=== PATIENT | female | born 1960 | race Caucasian/White ===

== ENCOUNTER → 2021-07-08 09:26 | Outpatient (CLI) | payer BC, SELFPAY ==
[2021-07-08 10:53] LABS: Thyroid Stimulating Hormone 2.91 uIU/mL (0.47-4.68)
== END ==
PROVIDERS: Referring Provider Family Medicine Adult Medicine; Visit Provider Family Medicine Adult Medicine
DX: E03.9 Hypothyroidism, unspecified (principal)
CPT/HCPCS: 36415; 84443

== ENCOUNTER → 2021-10-05 07:15 | Outpatient (CLI) | payer OTHER, MEDICAID, SELFPAY ==
[2021-10-05 08:57] LABS: Alanine Aminotransferase 13 IU/L (<35); Albumin 4.6 g/dL (3.5-5.0); Albumin Globulin Ratio 1.6 (1.0-2.8); Alkaline Phosphatase 29 U/L (38-126); Aspartate Aminotransferase 27 IU/L (14-36); BUN Creatinine Ratio 18.6 (6-22); Bilirubin Total 0.7 mg/dL (0.2-1.3); Blood Urea Nitrogen 13 mg/dL (7-17); Calcium 9.3 mg/dL (8.4-10.2); Carbon Dioxide 32 mmol/L (22-32); Chloride 105 mmol/L (98-107); Cholesterol 253 mg/dL (140-199); Estimated Glomerular Filt Rate > 60.0 mL/min (>60); Globulin 2.8 g/dL (1.7-4.1); Glucose 88 mg/dL (80-110); HDL Cholesterol 88 mg/dL (40-60); HEMOLYSIS < 15 (0-50); LDL Cholesterol Calculated 155 mg/dL (<100); Potassium 4.6 mmol/L (3.4-5.1); Sodium 141 mmol/L (137-145); Total Protein 7.4 g/dL (6.3-8.2); Triglycerides 52 mg/dL (35-150)
[2021-10-05 09:12] LABS: Free T4, Direct Thyroxine 1.15 ng/dL (0.78-2.19)
[2021-10-05 09:26] LABS: Thyroid Stimulating Hormone 3.71 uIU/mL (0.47-4.68)
== END ==
PROVIDERS: PCP Internal Medicine; Referring Provider Internal Medicine; Visit Provider Internal Medicine
DX: E03.9 Hypothyroidism, unspecified (principal); Z13.220 Encounter for screening for lipoid disorders
CPT/HCPCS: 36415; 80053; 80061; 84439; 84443

== ENCOUNTER → 2021-12-07 14:20 | Outpatient (CLI) | payer OTHER, MEDICAID, SELFPAY ==
--- NOTE | 2021-12-07 | DI.RAD.S_ITS ---
PROCEDURE: XR LUMBAR SPINE 2-3V INDICATIONS: low back pain TECHNIQUE: 3 views of the lumbar spine were acquired. COMPARISON: None. FINDINGS: Bones: 5 [id number] vertebrae are present. There is normal bony alignment. Loss of disc height and degenerative endplate changes throughout lumbar spine is seen. Bilateral facet arthrosis throughout lumbar spine is also noted. No vertebral body compression fractures. No suspicious bony lesions. Soft tissues: Overlying bowel gas pattern is normal. No suspicious soft tissue calcifications. IMPRESSION: Degenerative disc disease throughout lumbar spine. No acute compression fracture or spondylolisthesis. Dictated by: Dio Peters M.D. on 12/07/2021 at 15:48 Approved by: Dio Peters M.D. on 12/07/2021 at 15:48
== END ==
PROVIDERS: PCP Internal Medicine; Referring Provider Chiropractor; Visit Provider Chiropractor
DX: M51.36 Other intervertebral disc degeneration, lumbar region (principal); M54.50 Low back pain, unspecified
CPT/HCPCS: 72100

== ENCOUNTER 2022-01-03 19:28 | Emergency (ER) | payer OTHER, MEDICAID, SELFPAY ==
[2022-01-03 19:30] VITALS: BP 171/82; PULSE 67; RESP 14; TEMP 36.7; O2SAT 97; BMI 20.5
--- NOTE | 2022-01-03 20:31 | ED.SKABFB ---
HPI - Skin/Abscess/Foreign Bdy General Chief complaint: Skin/Abscess/Foreign Body Stated complaint: infected rt thumb nailbed Time Seen by Provider: 01/03/22 20:02 Source: patient Mode of arrival: Ambulatory Limitations: no limitations History of Present Illness HPI narrative: The patient presents with erythema and swelling at the right thumb nail edge this started about 1 week ago. The erythema and swelling initially occurred on the ulnar side of the nail, has now spread to the tip of the thumb. There is slight tenderness to the nail itself. She has previously had a paronychia that she was able to jose herself. She has not last this light, the site has worsened despite efforts of warm soaks. There are no red streaks spreading proximally from the thumb. She has no fever. She is right-hand dominant. There is no history of injury associated with the paronychia. Related Data Previous Rx's Medication Instructions Recorded levothyroxine 75 mcg tablet 75 mcg PO DAILY #90 tab 11/17/21 amoxicillin 875 mg-potassium 1 tab PO BID #14 tab 01/03/22 clavulanate 125 mg tablet Allergies Allergy/AdvReac Type Severity Reaction Status Date / Time No Known Drug Allergies Allergy Verified 01/03/22 19:34 Review of Systems Review of Systems Narrative: See HPI. Patient History Medical History Abnormal Pap smear of cervix Chlamydia Chronic back pain (~2009) Fibroids GERD (gastroesophageal reflux disease) Hematuria Hypothyroidism Neck pain (~1983) Ovarian cyst (~1989) Plantar warts Surgical History Anesthesia History of breast biopsy (~1977) History of colonoscopy (~2020) History of colonoscopy (~2010) Family History Mother Dementia Father Benign familial tremor Parkinson's disease History of heart disease Hyperlipidemia Grandmother Cancer Grandfather Cancer Grandmother Diabetes mellitus Social History Smoking Status: Former smoker Smoking Status: Former smoker alcohol intake frequency: other Substance Use Type: does not use Exam Initial Vital Signs Initial Vital Signs: Vital Signs Temperature 98.1 F 04/05/22 19:30 Pulse Rate 67 01/03/22 19:30 Respiratory Rate 14 01/03/22 19:30 Blood Pressure 171/82 H 01/03/22 19:30 Pulse Oximetry 97 01/03/22 19:30 Const General: cooperative, healthy appearing and comfortable Skin Other: As noted on the extremity exam. Neuro General: patient alert, patient awake, patient oriented x3 and no focal motor deficits Extrem Other: The right thumb is nontender. There is erythema, induration with fluctuance to the ulnar side of the right thumb nail bed. The induration extends to the tip of thumb and projects from the front edge of the nail. The site has tenderness to touch, capillary refill is intact. Procedures Abscess I/D I&D #1: Time of procedure: 20:25 Site: hand (Right thumb paronychia) Local Anesthetic: lidocaine 1% Amount of anesthesia used (mL): 1 Technique: incised with #11 blade (Incision to the side of the nail, for a paronychia. Incision to the tip of the thumb for a felon.) Amount of fluid expressed (mL): 1 Irrigation: Yes Packing used?: none Course Vital Signs Vital signs: Vital Signs - 8 hr 01/03/22 19:30 Temperature 98.1 F Pulse Rate 67 Respiratory Rate 14 Blood Pressure 171/82 H Pulse Oximetry 97 Discharge Plan Departure Patient Disposition: Home Clinical Impression: Felon of finger of right hand Instructions: DI for Felon Activity Restrictions/Additional Instructions: Soak your right thumb in warm water with Epsom salts 2- 3 times daily until you are convinced the thumb is healing. Augmentin 2 times daily as prescribed. Return here in 48 hours if not improved. Prescriptions: New amoxicillin-pot clavulanate 875-125 mg tablet 1 tab PO BID Qty: 14 0RF No Action levothyroxine 75 mcg tablet 75 mcg PO DAILY Qty: 90 2RF Rx Instructions: MYLAN BRAND PLEASE -- per patient request. Thanks Referrals: Gabriel Stearns MD [Primary Care Provider] -
[2022-01-03] MEDS: TETANUS DIPHTHERIA TOXOIDS 0.5 ML VIAL IM (20:42)
[2022-01-03] MEDS: AMOXICILLIN/CLAV 875/125 MG 1 TAB PO (20:42)
[2022-01-03] MEDS: LIDOCAINE 1% (PF) 2 ML (21:09)
== END 2022-01-03 21:10 | disposition home or self-care (01) ==
PROVIDERS: Emergency Provider Emergency Medicine; PCP Internal Medicine
DX: L03.011 Cellulitis of right finger (principal); Z23 Encounter for immunization
CPT/HCPCS: 10061; 87070; 87075; 87147; 87205; 90471; 90714; 99283

== ENCOUNTER → 2022-05-19 16:11 | Outpatient (CLI) | payer OTHER, MEDICAID, SELFPAY ==
--- NOTE | 2022-05-19 16:13 | DI.MG.S_ITS ---
BILATERAL DIGITAL SCREENING MAMMOGRAM 3D/2D WITH CAD: 05/19/2022 CLINICAL: Routine screening. Comparison is made to exams dated: 10/20/2020 mammogram, 03/28/2018 mammogram, and 03/09/2016 mammogram - outside facility. The tissue of both breasts is heterogeneously dense. This may lower the sensitivity of mammography. Current study was also evaluated with a Computer Aided Detection (CAD) system. No significant masses, calcifications, or other findings are seen in either breast. There has been no significant interval change. IMPRESSION: NEGATIVE There is no mammographic evidence of malignancy. A 1 year screening mammogram is recommended. Based on the Tyrer Cuzick model (a risk assessment model) the patient's lifetime risk is 11.1% and her 10 year risk is 4.8%. According to the ACR, ACS, and NCCN guidelines, an annual breast MRI exam along with mammogram is recommended if the patient's lifetime risk is 20% or greater. This exam was interpreted at Station ID: [id number]. NOTE: For mammograms, a report in lay terms will be sent to the patient. Approximately 15% of breast malignancies will not be visualized mammographically. In the management of a palpable breast mass, a negative mammogram must not discourage biopsy of a clinically suspicious lesion. Electronically Signed By: Warren zaidi/nik:05/22/2022 08:21:51 letter sent: Normal Exam ACR BI-RADS Category 1: Negative 3341F
== END ==
PROVIDERS: PCP Internal Medicine; Referring Provider Registered Nurse Diabetes Educator; Visit Provider Registered Nurse Diabetes Educator
DX: Z12.31 Encounter for screening mammogram for malignant neoplasm of breast (principal)
CPT/HCPCS: 77063; 77067

== ENCOUNTER → 2022-06-15 14:23 | Outpatient (CLI) | payer OTHER, MEDICAID, SELFPAY | PROVIDERS: PCP Internal Medicine; Visit Provider Physician Assistant Medical | DX: R31.9 Hematuria, unspecified (principal); R35.0 Frequency of micturition | CPT/HCPCS: 81002; 87086 ==

== ENCOUNTER → 2022-08-01 07:13 | Outpatient (CLI) | payer OTHER, MEDICAID, SELFPAY ==
[2022-08-01 11:23] LABS: BUN Creatinine Ratio 21.9 (6-22); Blood Urea Nitrogen 14 mg/dL (7-17); Calcium 9.2 mg/dL (8.4-10.2); Carbon Dioxide 28 mmol/L (22-32); Chloride 98 mmol/L (98-107); Estimated Glomerular Filt Rate > 60 mL/min (>60); Glucose 77 mg/dL (80-110); HEMOLYSIS < 15 (0-50); Sodium 137 mmol/L (137-145)
== END ==
PROVIDERS: PCP Internal Medicine; Referring Provider Internal Medicine; Visit Provider Internal Medicine
DX: Z01.818 Encounter for other preprocedural examination (principal)
CPT/HCPCS: 36415; 80048

== ENCOUNTER → 2022-08-02 08:11 | Outpatient (CLI) | payer OTHER, MEDICAID, SELFPAY ==
--- NOTE | 2022-08-02 08:20 | DI.CT.S_ITS ---
PROCEDURE: CT IVP A/P W/WO INDICATIONS: Other microscopic hematuria TECHNIQUE: 5 mm thick noncontrast images acquired from the diaphragm to the symphysis pubis. After the administration of intravenous contrast, 5 mm thick images acquired from the diaphragm to the symphysis pubis after a 10-minute delay using a split bolus technique. 2 mm thick coronal and sagittal reformats were then performed of the kidneys and ureters. For radiation dose reduction, the following was used: automated exposure control, adjustment of mA and/or kV according to patient size. COMPARISON: None. FINDINGS: Image quality: Excellent. Lung bases: No pleural effusion. Small pericardial effusion. Urinary system: No urinary stone or hydronephrosis visualized. Right upper kidney calyceal diverticulum, approximately 1.8 cm. No definite evidence of a solid renal mass. The opacified portions of the renal collecting systems and ureters are unremarkable without a definite filling defect demonstrated. Right proximal ureter and left mid ureter not well opacified and not well evaluated. No bladder stones visualized. Other solid organs: Liver is unremarkable in size and enhancement. Gallbladder is unremarkable . Biliary system is non dilated. Pancreas enhances normally. Spleen is normal in size. Subcentimeter hypodensity upper medial spleen is nonspecific, too small to characterize, could represent a cyst or hemangioma. No adrenal nodules. Peritoneum and bowel: No bowel obstruction. No free fluid or air. Possible small bilateral Bochdalek hernias. 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 vessels: Aorta and inferior vena cava are normal in size. Abdominal wall: Small fat containing periumbilical hernia. Pelvis: No pathologic free pelvic fluid. No adenopathy. Bones: Multilevel degenerative change of the visualized spine and hips. IMPRESSION: 1. No urinary stone or evidence of a solid renal mass or upper tract urothelial neoplasm. 2. Right upper kidney calyceal diverticulum. 3. Small pericardial effusion. Dictated by: Warren Bear M.D. on 08/02/2022 at 9:21 Approved by: Warren Bear M.D. on 08/02/2022 at 9:46
== END ==
PROVIDERS: PCP Internal Medicine; Referring Provider Specialist; Visit Provider Specialist
DX: R31.29 Other microscopic hematuria (principal); N28.89 Other specified disorders of kidney and ureter; I31.39 Other pericardial effusion (noninflammatory)
CPT/HCPCS: 74178; Q9967

== ENCOUNTER → 2022-11-30 15:42 | Outpatient (CLI) | payer OTHER, MEDICAID, SELFPAY ==
[2022-11-30 16:17] LABS: Hematocrit 36.2 % (36-46); Hemoglobin 12.4 g/dL (12.0-16.0)
[2022-11-30 16:40] LABS: Blood Urea Nitrogen 18 mg/dL (7-17); Calcium 9.1 mg/dL (8.4-10.2); Carbon Dioxide 28 mmol/L (22-32); Chloride 100 mmol/L (98-107); Estimated Glomerular Filt Rate > 60 mL/min (>60); Glucose 80 mg/dL (80-110); HEMOLYSIS < 15 (0-50); Potassium 3.8 mmol/L (3.4-5.1); Sodium 135 mmol/L (137-145)
[2022-11-30 17:12] LABS: Creatinine Urine Random 245.7 mg/dL
[2022-11-30 17:13] LABS: Protein (Total) Urine Random < 5 mg/dL (0-12); Protein Creatinine Ratio Urine 0.02 GRAM/24H
== END ==
PROVIDERS: Family Provider Internal Medicine; PCP Internal Medicine; Referring Provider Student in an Organized Health Care Education/Training Program; Visit Provider Student in an Organized Health Care Education/Training Program
DX: N05.9 Unspecified nephritic syndrome with unspecified morphologic changes (principal); D64.9 Anemia, unspecified; R80.9 Proteinuria, unspecified
CPT/HCPCS: 36415; 80048; 82570; 84156; 85014; 85018

== ENCOUNTER → 2022-12-16 07:58 | Outpatient (CLI) | payer OTHER, MEDICAID, SELFPAY ==
[2022-12-16 09:13] LABS: Alanine Aminotransferase 14 IU/L (<35); Albumin 4.5 g/dL (3.5-5.0); Albumin Globulin Ratio 1.6 (1.0-2.8); Alkaline Phosphatase 39 U/L (38-126); Aspartate Aminotransferase 27 IU/L (14-36); BUN Creatinine Ratio 19.7 (6-22); Bilirubin Total 1.1 mg/dL (0.2-1.3); Blood Urea Nitrogen 14 mg/dL (7-17); Carbon Dioxide 30 mmol/L (22-32); Chloride 101 mmol/L (98-107); Cholesterol 256 mg/dL (140-199); Estimated Glomerular Filt Rate > 60 mL/min (>60); Globulin 2.8 g/dL (1.7-4.1); Glucose 85 mg/dL (80-110); HDL Cholesterol 96 mg/dL (40-60); HEMOLYSIS < 15 (0-50); LDL Cholesterol Calculated 146 mg/dL (<100); Potassium 3.9 mmol/L (3.4-5.1); Sodium 138 mmol/L (137-145); Total Protein 7.3 g/dL (6.3-8.2); Triglycerides 71 mg/dL (35-150)
[2022-12-16 09:34] LABS: Free T4, Direct Thyroxine 1.18 ng/dL (0.78-2.19)
[2022-12-16 09:47] LABS: Thyroid Stimulating Hormone 5.39 uIU/mL (0.47-4.68)
== END ==
PROVIDERS: Family Provider Internal Medicine; PCP Internal Medicine; Referring Provider Internal Medicine; Visit Provider Internal Medicine
DX: Z13.6 Encounter for screening for cardiovascular disorders (principal); E03.9 Hypothyroidism, unspecified; R31.29 Other microscopic hematuria
CPT/HCPCS: 36415; 80053; 80061; 84439; 84443

== ENCOUNTER → 2022-12-19 07:32 | Outpatient (CLI) | payer OTHER, MEDICAID, SELFPAY | PROVIDERS: Family Provider Internal Medicine; PCP Internal Medicine; Visit Provider Physician Assistant | DX: J02.9 Acute pharyngitis, unspecified (principal) | CPT/HCPCS: 87070; 87880 ==

== ENCOUNTER → 2022-12-29 10:59 | Outpatient (CLI) | payer OTHER, MEDICAID, SELFPAY ==
[2022-12-29 11:32] LABS: Appearance Urine UA CLEAR; Bilirubin Urine UA NEGATIVE (NEGATIVE); Color Urine UA YELLOW; Glucose Urine UA NEGATIVE (Negative); Ketones Urine UA NEGATIVE (NEGATIVE); Leukocyte Esterase Urine UA NEGATIVE (NEGATIVE); Nitrite Urine UA NEGATIVE (Negative); Occult Blood Urine UA 1+ (Negative); Protein Urine UA NEGATIVE (Negative); Specific Gravity Urine UA <=1.005 (1.000-1.035); Urobilinogen Urine UA 0.2 E.U./dL (0.2)
[2022-12-29 11:56] LABS: pH Urine UA 6.5 (4.5-8.0)
[2022-12-29 12:30] LABS: Bacteria Urine None Seen; Culture Indicated Urine Cult Not Indicated; RBC Urine 0-1/HPF (0-5/HPF); Squamous Epithelial Cell Urine None Seen (0-5/HPF); WBC Urine None Seen (0-5/HPF)
[2022-12-29 13:41] LABS: Hep C Virus Ab w/Reflex Quant NEGATIVE s/c (NEGATIVE); Hepatitis B Surface Antigen NEGATIVE s/c (NEGATIVE)
[2022-12-30 08:44] LABS: Hepatitis B Surf Ab Qualitativ Non Reactive (.)
[2022-12-30 19:06] LABS: DNA (DS) Antibody <1 IU/mL (0-9)
[2022-12-31 07:18] LABS: Complement C3 97 mg/dL (82-167); Hepatitis B Core Antibody Negative (Negative)
[2023-01-02 12:36] LABS: Cytoplasmic C-ANCA <1:20 titer (Neg:<1:20); Perinuclear P-ANCA <1:20 titer (Neg:<1:20)
[2023-01-02 18:07] LABS: ANA Screen, IFA Negative (.)
== END ==
PROVIDERS: Family Provider Internal Medicine; PCP Internal Medicine; Referring Provider Student in an Organized Health Care Education/Training Program; Visit Provider Student in an Organized Health Care Education/Training Program
DX: L93.2 Other local lupus erythematosus (principal); M31.30 Wegener's granulomatosis without renal involvement; N00.9 Acute nephritic syndrome with unspecified morphologic changes; D89.89 Other specified disorders involving the immune mechanism, not elsewhere classified; B19.10 Unspecified viral hepatitis B without hepatic coma; B17.10 Acute hepatitis C without hepatic coma; N30.00 Acute cystitis without hematuria
CPT/HCPCS: 36415; 81001; 83516; 86038; 86160; 86225; 86256; 86704; 86706; 86803; 87340

== ENCOUNTER → 2023-01-02 17:02 | Outpatient (CLI) | payer OTHER, MEDICAID, SELFPAY ==
--- NOTE | 2023-01-02 | DI.MRI.S_ITS ---
PROCEDURE: MR LUMBAR SPINE WO CON INDICATIONS: STRAIN OF MUSCLE, LOWER BACK TECHNIQUE: Noncontrast sagittal T1 spin echo and T2 fast echo, sagittal STIR, and T2 fast spin echo through the lumbar spine. In cases with scoliosis, additional coronal T2 fast spin echo may be performed. COMPARISON: [facility], CR, XR LUMBAR SPINE WITH FLEXION EXTENSION 5 VIEWS, 11/17/2022, 12:01. FINDINGS: Image quality: Excellent. Alignment and Curvature: There is normal bony alignment. Bone Marrow: Marrow is of normal overall signal. No acute vertebral body compression fractures. Spinal Cord: Conus medullaris terminates at the L1-L2 level. Visualized cord demonstrates normal signal and size. Paraspinous Soft Tissues: No paravertebral masses. T12-L1: Minimal disc bulge. No canal stenosis or foraminal stenosis. L1-L2: No canal stenosis or foraminal stenosis. L2-L3: Severe disc height loss. Mild posterior disc post osteophyte. Mild facet hypertrophy. No significant canal stenosis or foraminal stenosis. L3-L4: Moderate disc height loss. Disc bulge. Facet hypertrophy. Mild canal stenosis. No significant right foraminal narrowing. Left foraminal disc bulge indenting on the inferior aspect of the left L3 nerve root with [id number] foraminal stenosis. L4-L5: Disc bulge. Moderate disc height loss. Facet hypertrophy. Konp-qd-qsozqjnl canal stenosis. Crdn-zp-pfjloiru right foraminal narrowing with mild flattening deformity on the exiting right L4 nerve root. Mild left foraminal narrowing. L5-S1: Bilateral facet hypertrophy. Disc bulge. No canal stenosis or foraminal stenosis. IMPRESSION: 1. Mild multilevel facet arthropathy. 2. Canal stenosis is mild at L3-L4 and iwjm-wb-[id number] at L4-L5. 3. Multilevel foraminal narrowing as described above. Dictated by: Owen Garcia M.D. on 01/03/2023 at 8:13 Approved by: Owen Garcia M.D. on 01/03/2023 at 8:20
== END ==
PROVIDERS: Family Provider Internal Medicine; PCP Internal Medicine; Referring Provider Physician Assistant Surgical; Visit Provider Physician Assistant Surgical
DX: S39.012A Strain of muscle, fascia and tendon of lower back, initial encounter (principal); M47.816 Spondylosis without myelopathy or radiculopathy, lumbar region; M47.817 Spondylosis without myelopathy or radiculopathy, lumbosacral region; M48.061 Spinal stenosis, lumbar region without neurogenic claudication
CPT/HCPCS: 72148

== ENCOUNTER 2023-01-23 15:15 | Outpatient (RCR) | payer OTHER, MEDICAID, SELFPAY ==
--- NOTE | 2023-01-10 09:51 | PT.OIE ---
Current Diagnoses Segmental and somatic dysfunction of pelvic region (01/09/23) Unspecified urinary incontinence (01/09/23) Nocturia (01/09/23) Past Medical History (Last Updated 12/19/22 @ 14:48 by Gabriel Stearns MD) Abnormal Pap smear of cervix Chlamydia Chronic back pain (~2009) Fibroids GERD (gastroesophageal reflux disease) Hematuria History of abnormal cervical Pap smear Hypothyroidism Neck pain (~1983) Ovarian cyst (~1989) Plantar warts Thyroid disease Past Surgical History (Last Reviewed 08/23/22 @ 08:45 by Argentina Jacques MD) Anesthesia History of breast biopsy (~1977) History of colonoscopy (~2020) History of colonoscopy (~2010) Visit Care Team Role Provider Type Gabriel Stearns MD Family Provider Physician Primary Care Provider Specialty: Internal Medicine Address: [address] [place] [address], [id number] Email: [email or web address] Meg Souza PA-C Attending Provider Advanced Acid Purifier Referring Provider Specialty: Medical Address: [address] [place] [address], [facility] Phone: Fax: Email: Physical Therapy Initial Evaluation PT-OP-A Visit Information Start: 01/09/23 09:29 Freq: Status: Active Protocol: Document 01/09/23 14:35 [facility] (Rec: 01/09/23 15:30 [facility] [id number]) Out-Patient Physical Therapy Visit Information Visit Information Visit Type Initial Evaluation Visit Note 62 year old female with urinary urge and stress incontinence Visit Start Time 14:35 Visit Stop Time 15:15 Total Visit Minutes 40 Visit Number 1 Evaluation Information Evaluation Date 01/09/23 PT-OP-B Current Condition Start: 01/09/23 09:29 Freq: Status: Active Protocol: Document 01/09/23 14:35 [facility] (Rec: 01/09/23 15:30 [facility] [id number]) Current Condition History of Current Condition Onset Date chronic Current Complaints urinary urgency, urge incontinence, stress incontinence History of Current Condition pt has been single for years and notes vaginal atrophy, she started using estrodial for microscopic hematuria. She did have her bladder CT scans which was normal and she had consult with the kidney doctor . She reports symptoms of urgnecy as well as urinary stress incontinence. She is not wearing pads usually but only occasionally if she will wear a pad if she is going be out of the house. Pt also reports nocturia. Treatment Goals Patient/Caregiver Goals pts goals include reducing urinary urgency and stress incontinence PT-OP-F Manual Assessment Start: 01/09/23 09:29 Freq: Status: Active Protocol: Document 01/09/23 14:35 [facility] (Rec: 01/09/23 17:30 [facility] [id number]) Manual Assessments Soft Tissue Assessment Soft Tissue Mobility Assessment hypertonic left lateral wall of the pelvic floor, left adductors guarded and tight, piriformis guarded and tight on the left PT-OP-I Pelvic Floor Start: 01/09/23 09:29 Freq: Status: Active Protocol: Document 01/09/23 14:35 [facility] (Rec: 01/09/23 17:27 [facility] [id number]) Pelvic Floor Assessment Urine Pelvic Floor Surgery No Urinary Symptoms Urge Sensation Leakage Size Small Leakage Cause Exercise,Urge Other Leakage Causes changing from sit-stand Leaks Per Day varies Voiding Frequency 6 Nocturia 1-3 times Pelvic Clock Pelvic Clock 3-6 Guarding,Hypertonic Pelvic Clock 6-9 Guarding Pelvic Clock Other pt has difficulty relaxing her pelvic floor and is hypertonic on the left lateral wall, she is guarded on the right side but is better able to relax on the right Contraction Ability Voluntary Contraction Moderate Manual Muscle Testing Left 4 Manual Muscle Testing Right 4 Manual Muscle Testing Anterior 4 Manual Muscle Testing Posterior 4 Muscle Endurance (Seconds) 4 Comments Pelvic Floor Comments pt lacks endurance of the pelvic floor and is only able to sustain a pelvic floor contraction x 4 seconds in supine PT-OP-J Posture/Palpation/Skin Start: 01/09/23 09:29 Freq: Status: Active Protocol: Document 01/09/23 14:35 [facility] (Rec: 01/09/23 17:28 [facility] [id number]) Palpation Assessment Location levator ani Palpation Findings Soft Tissue Tightness,Muscle Guarding Palpation Details left side of the levator ani is hypertonic and guarded, right side is guarded PT-OP-Q Treatments Start: 01/09/23 09:29 Freq: Status: Active Protocol: Document 01/09/23 14:35 [facility] (Rec: 01/09/23 17:20 [facility] [id number]) Therapeutic Exercises Supine Exercises pelvic floor long holds Reps/Minutes x 10 reps holding 5 seconds and relaxing x 10 seconds or longer modified pelvic floor squat stretch Reps/Minutes hold 1-2 minutes happy baby stretch Reps/Minutes hold 1-2 min PT-OP-T Assessment and Plan Start: 01/09/23 09:29 Freq: Status: Active Protocol: Document 01/09/23 14:35 [facility] (Rec: 01/09/23 17:35 [facility] [id number]) Physical Therapy Assessment Rehab Potential Rehabilitation Potential Excellent Evaluation Complexity Number of Personal Factors/Comorbidities 0 Number of Body Systems Impaired 1-2 Clinical Presentation at Evaluation Stable Impairments Impairments Activity Tolerance,Soft Tissue Mobility,Strength,Tone Other Impairments urinary urgency, nocturia, urge and stress incontinence Goals 3 Impairment urinary stress and urge incontinence Containers Sales Representative Goal (LTG) pt reports overall reduction with urge and stress incontinence and is able to engage in her social activities without experiencing urinary leakage LTG Duration 8 weeks+ 2 Impairment urinary urgency and nocturia Short Term Goal (STG) pt is educated on bladder retraining and urge deference technique to help decrease c/o urinary urgency STG Duration 4 weeks Containers Sales Representative Goal (LTG) pt is able to delay the need to void to every 2 hours during the day and is waking only 1 time at night to void LTG Duration 8 weeks 1 Impairment hypertonicity of the left lateral wall of the levator ani and decreased ability to relax the pelvic floor at rest making it difficult to fully empty the bladder Short Term Goal (STG) pt is educated on relaxed awareness of the pelvic floor and importance of pelvic floor and abdominal relaxation with voiding STG Duration 3 weeks Penitentiary Goal (LTG) With manual therapy techniques , exercises and stretches Chrisite is able to fully relax the pelvic floor to baseline. LTG Duration 8 weeks + Assessment Summary Assessment Silvia is a 62 year old female who presents to PT today with c/o urinary urgency , urge and stress incontinence . She reports she has a history of left sided hip pain from OA and has been doing PT for her hip. Recent MRI shows multi level facet arthropathy, multi level foraminal narrowing, mild canal stenosis at L3-4 and mild -moderate at L4-5. She has been using estrogen cream which she started recently and she feels this has been helping. With pelvic floor examination today Silvia presents with hypertonic pelvic floor on the left lateral wall of the levator ani. She is guarded on the right side but with cueing she is able to relax her right lateral wall of the levator ani. She lacks endurance holds greater than 4 seconds and becomes fatigued quickly with contractions. Treatment will address the hypertonicity of the levator ani on the left and educate on relaxed awareness of the pelvic floor for complete bladder emptying. Pt will be instructed in bladder retraining and urge deference technique as well as Pelvic floor endurance training with EMG biofeedback. She is a good candidate for PT. Physical Therapy Plan Frequency and Duration Frequency of Treatment 1x/Week Duration of treatment (weeks) 8 Plan of Care Start Date 01/09/23 Plan of Care End Date 03/06/23 Therapeutic Interventions Therapeutic Interventions Manual Therapy,Neuromuscular Re-education,Patient/Caregiver Education,Self-Care/Home Management,Soft Tissue Mobilization,Therapeutic Exercises Modalities Biofeedback Next Visit Focus/Plan Next Note Type Treatment Note Next Visit Plan Begin EMG biofeedback next visit and educate Silvia on bladder retraining and urge deference technique.
--- NOTE | 2023-01-10 09:52 | PT.OPPOC ---
Physical, Occupational & Speech Therapy At [facility] Current Diagnoses Segmental and somatic dysfunction of pelvic region (01/09/23) Unspecified urinary incontinence (01/09/23) Nocturia (01/09/23) Visit Care Team Role Provider Type Gabriel Stearns MD Family Provider Physician Primary Care Provider Specialty: Internal Medicine Address: [address] [place] [address], [address] Email: [email or web address] Meg Souza PA-C Attending Provider Advanced Window/Distribution Clerk Referring Provider Specialty: Medical Address: [address] [place] [address], [place] [address], [place], [address] Phone: Fax: Email: Plan Of Care PT-OP-T Assessment and Plan Start: 01/09/23 09:29 Freq: Status: Active Protocol: Document 01/09/23 14:35 [facility] (Rec: 01/09/23 17:35 [facility] [id number]) Physical Therapy Assessment Rehab Potential Rehabilitation Potential Excellent Evaluation Complexity Number of Personal Factors/Comorbidities 0 Number of Body Systems Impaired 1-2 Clinical Presentation at Evaluation Stable Impairments Impairments Activity Tolerance,Soft Tissue Mobility,Strength,Tone Other Impairments urinary urgency, nocturia, urge and stress incontinence Goals 3 Impairment urinary stress and urge incontinence Appliance Assembler Goal (LTG) pt reports overall reduction with urge and stress incontinence and is able to engage in her social activities without experiencing urinary leakage LTG Duration 8 weeks+ 2 Impairment urinary urgency and nocturia Short Term Goal (STG) pt is educated on bladder retraining and urge deference technique to help decrease c/o urinary urgency STG Duration 4 weeks Halfway Goal (LTG) pt is able to delay the need to void to every 2 hours during the day and is waking only 1 time at night to void LTG Duration 8 weeks 1 Impairment hypertonicity of the left lateral wall of the levator ani and decreased ability to relax the pelvic floor at rest making it difficult to fully empty the bladder Short Term Goal (STG) pt is educated on relaxed awareness of the pelvic floor and importance of pelvic floor and abdominal relaxation with voiding STG Duration 3 weeks Appliance Assembler Goal (LTG) With manual therapy techniques , exercises and stretches Chrisite is able to fully relax the pelvic floor to baseline. LTG Duration 8 weeks + Assessment Summary Assessment Silvia is a 62 year old female who presents to PT today with c/o urinary urgency , urge and stress incontinence . She reports she has a history of left sided hip pain from OA and has been doing PT for her hip. Recent MRI shows multi level facet arthropathy, multi level foraminal narrowing, mild canal stenosis at L3-4 and mild -moderate at L4-5. She has been using estrogen cream which she started recently and she feels this has been helping. With pelvic floor examination today Silvia presents with hypertonic pelvic floor on the left lateral wall of the levator ani. She is guarded on the right side but with cueing she is able to relax her right lateral wall of the levator ani. She lacks endurance holds greater than 4 seconds and becomes fatigued quickly with contractions. Treatment will address the hypertonicity of the levator ani on the left and educate on relaxed awareness of the pelvic floor for complete bladder emptying. Pt will be instructed in bladder retraining and urge deference technique as well as Pelvic floor endurance training with EMG biofeedback. She is a good candidate for PT. Physical Therapy Plan Frequency and Duration Frequency of Treatment 1x/Week Duration of treatment (weeks) 8 Plan of Care Start Date 01/09/23 Plan of Care End Date 03/06/23 Therapeutic Interventions Therapeutic Interventions Manual Therapy,Neuromuscular Re-education,Patient/Caregiver Education,Self-Care/Home Management,Soft Tissue Mobilization,Therapeutic Exercises Modalities Biofeedback Next Visit Focus/Plan Next Note Type Treatment Note Next Visit Plan Begin EMG biofeedback next visit and educate Silvia on bladder retraining and urge deference technique. Plan of Care Dates Plan of Care Start Date 01/09/23 Plan of Care End Date 03/06/23 Electronically Signed by: Jazmyne Brown, PT 01/10/23 0952 If you are in agreement with this Plan of Care, please return a signed and dated copy. I have reviewed this Plan of Care and certify that the skilled therapy services above are required to meet the patient?s needs. Physician Signature Date Printed Name and Credentials Clinical Instructor Signature Printed Name and Credentials
--- NOTE | 2023-01-18 17:11 | PT.OTN ---
Current Diagnoses Segmental and somatic dysfunction of pelvic region (01/18/23) Unspecified urinary incontinence (01/18/23) Nocturia (01/18/23) Physical Therapy Treatment Note PT-OP-A Visit Information Start: 01/09/23 09:29 Freq: Status: Active Protocol: Document 01/18/23 16:06 [facility] (Rec: 01/18/23 17:10 [facility] [id number]) Out-Patient Physical Therapy Visit Information Visit Information Visit Type Treatment Note Visit Start Time 14:05 Visit Stop Time 14:50 Total Visit Minutes 45 Visit Number 2 PT-OP-B Current Condition Start: 01/09/23 09:29 Freq: Status: Active Protocol: Document 01/09/23 14:35 [facility] (Rec: 01/09/23 15:30 [facility] [id number]) Current Condition History of Current Condition Onset Date chronic Current Complaints urinary urgency, urge incontinence, stress incontinence History of Current Condition pt has been single for years and notes vaginal atrophy, she started using estrodial for microscopic hematuria. She did have her bladder CT scans which was normal and she had consult with the kidney doctor . She reports symptoms of urgnecy as well as urinary stress incontinence. She is not wearing pads usually but only occasionally if she will wear a pad if she is going be out of the house. Pt also reports nocturia. Treatment Goals Patient/Caregiver Goals pts goals include reducing urinary urgency and stress incontinence PT-OP-C Subjective Start: 01/09/23 09:29 Freq: Status: Active Protocol: Document 01/18/23 16:06 [facility] (Rec: 01/18/23 17:10 [facility] [id number]) OP-PT Subjective Patient Comments Patient Comments pt has been working on her exercises, pt has been holding x 8 seconds PT-OP-F Manual Assessment Start: 01/09/23 09:29 Freq: Status: Active Protocol: Document 01/09/23 14:35 [facility] (Rec: 01/09/23 17:30 [facility] [id number]) Manual Assessments Soft Tissue Assessment Soft Tissue Mobility Assessment hypertonic left lateral wall of the pelvic floor, left adductors guarded and tight, piriformis guarded and tight on the left PT-OP-I Pelvic Floor Start: 01/09/23 09:29 Freq: Status: Active Protocol: Document 01/09/23 14:35 [facility] (Rec: 01/09/23 17:27 [facility] [id number]) Pelvic Floor Assessment Urine Pelvic Floor Surgery No Urinary Symptoms Urge Sensation Leakage Size Small Leakage Cause Exercise,Urge Other Leakage Causes changing from sit-stand Leaks Per Day varies Voiding Frequency 6 Nocturia 1-3 times Pelvic Clock Pelvic Clock 3-6 Guarding,Hypertonic Pelvic Clock 6-9 Guarding Pelvic Clock Other pt has difficulty relaxing her pelvic floor and is hypertonic on the left lateral wall, she is guarded on the right side but is better able to relax on the right Contraction Ability Voluntary Contraction Moderate Manual Muscle Testing Left 4 Manual Muscle Testing Right 4 Manual Muscle Testing Anterior 4 Manual Muscle Testing Posterior 4 Muscle Endurance (Seconds) 4 Comments Pelvic Floor Comments pt lacks endurance of the pelvic floor and is only able to sustain a pelvic floor contraction x 4 seconds in supine PT-OP-J Posture/Palpation/Skin Start: 01/09/23 09:29 Freq: Status: Active Protocol: Document 01/09/23 14:35 [facility] (Rec: 01/09/23 17:28 [facility] [id number]) Palpation Assessment Location levator ani Palpation Findings Soft Tissue Tightness,Muscle Guarding Palpation Details left side of the levator ani is hypertonic and guarded, right side is guarded PT-OP-Q Treatments Start: 01/09/23 09:29 Freq: Status: Active Protocol: Document 01/18/23 16:06 [facility] (Rec: 01/18/23 17:10 [facility] [id number]) Therapeutic Exercises Supine Exercises diaphragmatic breathing Reps/Minutes x 4 min pelvic floor resting tone Reps/Minutes 2.5 uv pelvic floor long holds Reps/Minutes holding 10 seconds on 10 seconds for HEP 10 sec on 20sec off Comments 24.5 max of 43.1 modified pelvic floor squat stretch Reps/Minutes hold 1-2 minutes happy baby stretch Reps/Minutes hold 1-2 min Other Exercises armin pose Reps/Minutes hold 1-2 min Neuro Re-Education Treatment Other Activities EMG biofeedback Comments relaxed awareness of the pelvic floor, education on breathing with pelvic floor relaxation Self-Care/Home Management Treatment Education Patient Education Home Exercise Program Other Education pt was educated in urge deference technique and bladder retraining , HEP instruction PT-OP-T Assessment and Plan Start: 01/09/23 09:29 Freq: Status: Active Protocol: Document 01/18/23 16:06 [facility] (Rec: 01/18/23 17:10 [facility] [id number]) Physical Therapy Assessment Goals 3 Impairment urinary stress and urge incontinence Long-Term Goal (LTG) pt reports overall reduction with urge and stress incontinence and is able to engage in her social activities without experiencing urinary leakage LTG Duration 8 weeks+ 2 Impairment urinary urgency and nocturia Short Term Goal (STG) pt is educated on bladder retraining and urge deference technique to help decrease c/o urinary urgency STG Duration 4 weeks Fishing Gear Mechanic Goal (LTG) pt is able to delay the need to void to every 2 hours during the day and is waking only 1 time at night to void LTG Duration 8 weeks 1 Impairment hypertonicity of the left lateral wall of the levator ani and decreased ability to relax the pelvic floor at rest making it difficult to fully empty the bladder Short Term Goal (STG) pt is educated on relaxed awareness of the pelvic floor and importance of pelvic floor and abdominal relaxation with voiding STG Duration 3 weeks Fishing Gear Mechanic Goal (LTG) With manual therapy techniques , exercises and stretches Cheleite is able to fully relax the pelvic floor to baseline. LTG Duration 8 weeks + Assessment Summary Assessment Silvia was educated on relaxed awareness of the pelvic floor with EMG biofeedback and diaphragmatic breathing. She was able to relax to 2.5 uv on EMG biofeedback. She was able to sustain a contraction approx 8 sec today with emphasis on relaxation following. She was also started on urge deference technique today Physical Therapy Plan Frequency and Duration Frequency of Treatment 1x/Week Duration of treatment (weeks) 8 Plan of Care Start Date 01/09/23 Plan of Care End Date 03/06/23 Next Visit Focus/Plan Next Note Type Treatment Note Next Visit Plan review urge deference technique, stretches and diaphragmatic breathing, continue with EMG biofeedback
--- NOTE | 2023-01-23 16:36 | PT.OTN ---
Current Diagnoses Segmental and somatic dysfunction of pelvic region (01/23/23) Unspecified urinary incontinence (01/23/23) Nocturia (01/23/23) Physical Therapy Treatment Note PT-OP-A Visit Information Start: 01/09/23 09:29 Freq: Status: Active Protocol: Document 01/23/23 15:21 [facility] (Rec: 01/23/23 16:36 [facility] [id number]) Out-Patient Physical Therapy Visit Information Visit Information Visit Type Treatment Note Visit Start Time 15:20 Visit Stop Time 16:05 Total Visit Minutes 45 Visit Number 3 PT-OP-B Current Condition Start: 01/09/23 09:29 Freq: Status: Active Protocol: Document 01/09/23 14:35 [facility] (Rec: 01/09/23 15:30 [facility] [id number]) Current Condition History of Current Condition Onset Date chronic Current Complaints urinary urgency, urge incontinence, stress incontinence History of Current Condition pt has been single for years and notes vaginal atrophy, she started using estrodial for microscopic hematuria. She did have her bladder CT scans which was normal and she had consult with the kidney doctor . She reports symptoms of urgnecy as well as urinary stress incontinence. She is not wearing pads usually but only occasionally if she will wear a pad if she is going be out of the house. Pt also reports nocturia. Treatment Goals Patient/Caregiver Goals pts goals include reducing urinary urgency and stress incontinence PT-OP-C Subjective Start: 01/09/23 09:29 Freq: Status: Active Protocol: Document 01/23/23 15:21 [facility] (Rec: 01/23/23 16:36 [facility] [id number]) OP-PT Subjective Patient Comments Patient Comments pt has been working on moving and her furnature goes out on PT-OP-F Manual Assessment Start: 01/09/23 09:29 Freq: Status: Active Protocol: Document 01/09/23 14:35 [facility] (Rec: 01/09/23 17:30 [facility] [id number]) Manual Assessments Soft Tissue Assessment Soft Tissue Mobility Assessment hypertonic left lateral wall of the pelvic floor, left adductors guarded and tight, piriformis guarded and tight on the left PT-OP-I Pelvic Floor Start: 01/09/23 09:29 Freq: Status: Active Protocol: Document 01/09/23 14:35 [facility] (Rec: 01/09/23 17:27 [facility] [id number]) Pelvic Floor Assessment Urine Pelvic Floor Surgery No Urinary Symptoms Urge Sensation Leakage Size Small Leakage Cause Exercise,Urge Other Leakage Causes changing from sit-stand Leaks Per Day varies Voiding Frequency 6 Nocturia 1-3 times Pelvic Clock Pelvic Clock 3-6 Guarding,Hypertonic Pelvic Clock 6-9 Guarding Pelvic Clock Other pt has difficulty relaxing her pelvic floor and is hypertonic on the left lateral wall, she is guarded on the right side but is better able to relax on the right Contraction Ability Voluntary Contraction Moderate Manual Muscle Testing Left 4 Manual Muscle Testing Right 4 Manual Muscle Testing Anterior 4 Manual Muscle Testing Posterior 4 Muscle Endurance (Seconds) 4 Comments Pelvic Floor Comments pt lacks endurance of the pelvic floor and is only able to sustain a pelvic floor contraction x 4 seconds in supine PT-OP-J Posture/Palpation/Skin Start: 01/09/23 09:29 Freq: Status: Active Protocol: Document 01/09/23 14:35 [facility] (Rec: 01/09/23 17:28 [facility] [id number]) Palpation Assessment Location levator ani Palpation Findings Soft Tissue Tightness,Muscle Guarding Palpation Details left side of the levator ani is hypertonic and guarded, right side is guarded PT-OP-Q Treatments Start: 01/09/23 09:29 Freq: Status: Active Protocol: Document 01/23/23 15:21 [facility] (Rec: 01/23/23 16:36 [facility] [id number]) Therapeutic Exercises Supine Exercises diaphragmatic breathing Reps/Minutes x6 min Comments worked on box breathing pelvic floor long holds Comments 20.6 39.4 max Other Exercises cat cow Reps/Minutes x 10 Comments with the breath Neuro Re-Education Treatment Other Activities EMG biofeedback Comments relaxed awareness of the pelvic floor, education on breathing with pelvic floor relaxation Self-Care/Home Management Treatment Education Patient Education Home Exercise Program Other Education urge technique reviewed and pt educated on progression of exercises to sitting and standing PT-OP-T Assessment and Plan Start: 01/09/23 09:29 Freq: Status: Active Protocol: Document 01/23/23 15:21 [facility] (Rec: 01/23/23 16:36 [facility] [id number]) Physical Therapy Assessment Goals 3 Impairment urinary stress and urge incontinence Marketing And Communications Officer Goal (LTG) pt reports overall reduction with urge and stress incontinence and is able to engage in her social activities without experiencing urinary leakage good progress, pt feels at this point she is leaking only a very small amount if at all LTG Duration 8 weeks+ 2 Impairment urinary urgency and nocturia Short Term Goal (STG) pt is educated on bladder retraining and urge deference technique to help decrease c/o urinary urgency goal met STG Duration 4 weeks Marketing And Communications Officer Goal (LTG) pt is able to delay the need to void to every 2 hours during the day and is waking only 1 time at night to void Pt is working on the ability to extend time between voids and she has been successful during the day but is still waking at night to void LTG Duration 8 weeks 1 Impairment hypertonicity of the left lateral wall of the levator ani and decreased ability to relax the pelvic floor at rest making it difficult to fully empty the bladder Short Term Goal (STG) pt is educated on relaxed awareness of the pelvic floor and importance of pelvic floor and abdominal relaxation with voiding GOAL MET STG Duration 3 weeks Senior Living Goal (LTG) With manual therapy techniques , exercises and stretches Rachel is able to fully relax the pelvic floor to baseline. improved but not fully to baseline LTG Duration 8 weeks + Assessment Summary Assessment Silvia has done really well with PT and has been working both on relaxed awareness of the pelvic floor to promote fully voiding but also pelvic floor strength. Relaxation of the pelvic floor has been the most challenging for her. She is leaving in January for her travels so will be done with PT at this time. She is scheduled for a post void residual test later in the summer. Overall her symptoms of leakage are minimal at this point and day time urgency is much improved. She is still waking at night to void. She has a dilator now to work on gentle vaginal tissue stretching and she will continue with her estrogen cream as well as pelvic floor exercises. Physical Therapy Plan Discharge Physical Therapy Discharge Reasons Patient Request Discharge Comments pt will be traveling starting and January and will discharge from PT at this time
== END 2023-01-25 10:30 | disposition home or self-care (01) ==
LOC: PHYS 15:15
PROVIDERS: Family Provider Internal Medicine; PCP Internal Medicine; Referring Provider Physician Assistant Medical; Visit Provider Physician Assistant Medical
DX: R32 Unspecified urinary incontinence (principal); R35.1 Nocturia; M99.05 Segmental and somatic dysfunction of pelvic region
CPT/HCPCS: 97110; 97112; 97161; 97535